=== PATIENT | female | born 1970 | race African-American/Black ===

== ENCOUNTER 2019-04-22 23:29 | Inpatient (IN) | payer MEDICAID, OTHER ==
[~2019-04-22] VITALS: Ht 162.6 cm; Wt 61.8 kg
[~2019-04-22 23:29] MED LIST: ALBU2.5V36 NEB; ALBU8.5H8 INH; DOXY100C PO; FLUO20CA38 PO; HYDR25TA6 PO; PRED20TA PO
--- NOTE | 2019-04-22 23:39 | ERD ---
ER Documentation Chief Complaint Chief Complaint BIBRA,wheezing,SOB,hx asthma,rec'd albuterol tx on route,hx CVA HPI The patient is a 48-year-old female, presenting to the ER because of worsening dyspnea today, has similar symptoms previously, treated with albuterol 5 mg nebulizer by EMS with minimal response. She is awake, alert, but only answer yes or no question. He denies fever, chills, neck pain, chest pain, abdominal pain, vomiting, dysuria, diarrhea. She smokes, denies drinking or using illicit drug Past medical history: Asthma, history of CVA, depression, hypertension Past surgical history: None ROS All systems reviewed and are negative except as per history of present illness. Medications Home Meds Active Scripts Albuterol Sulfate* (Proair HFA*) 8.5 Gm Hfa.aer.ad, 2 PUFF INH Q4, #1 INHALER Prov:KHANG RICH NP 01/08/16 Prednisone* (Prednisone*) 20 Mg Tab, 20 MG PO DAILY for 4 Days, TAB Prov:KHANG RICH NP 01/08/16 Hydrochlorothiazide* (Hydrochlorothiazide*) 25 Mg Tab, 25 MG PO DAILY, #30 TAB Prov:LACY EDWARDS MD 12/27/15 Doxycycline* (Vibramycin*) 100 Mg Capsule, 100 MG PO BID for 7 Days, EA Prov:LACY EDWARDS MD 12/27/15 Albuterol Sulfate* (Proair HFA*) 8.5 Gm Hfa.aer.ad, 2 PUFF INH Q4, #1 INHALER Prov:LACY EDWARDS MD 12/27/15 Prednisone* (Prednisone*) 20 Mg Tab, 60 MG PO DAILY for 5 Days, TAB Prov:LACY EDWARDS MD 12/27/15 Reported Medications Albuterol Sulfate* (Albuterol Sulfate* Neb) 0.5%-0.5 Ml Neb, 1.25 MG NEB Q3H PRN for WHEEZING AND SOB, EA 03/14/15 Fluoxetine Hcl* (Prozac*) 20 Mg Capsule, 20 MG PO DAILY, CAP 03/09/15 Allergies Allergies: Coded Allergies: erythromycin base (Verified Allergy, Severe, 12/27/15) Bacitracin Zinc (Verified Allergy, Unknown, 03/14/15) bacitracin (Verified Allergy, Unknown, 03/14/15) benzalkonium chloride (Verified Allergy, Unknown, 03/14/15) gramicidin D (Verified Allergy, Unknown, 03/14/15) neomycin sulfate (Verified Allergy, Unknown, 03/14/15) polymyxin B (Verified Allergy, Unknown, 03/14/15) polymyxin B sulfate (Verified Allergy, Unknown, 03/14/15) PMhx/Soc History of Surgery: No Anesthesia Reaction: No Hx Neurological Disorder: No Hx Respiratory Disorders: Yes (Asthma) Hx Cardiac Disorders: Yes (HTN) Hx Psychiatric Problems: Yes (DEPRESSION) Hx Miscellaneous Medical Probl: No Hx Alcohol Use: Yes (SOCIALLY) Hx Substance Use: No Hx Tobacco Use: No Physical Exam Vitals Vital Signs Date Temp Pulse Resp B/P (MAP) Pulse Ox O2 O2 Flow FiO2 Time Delivery Rate 04/23/19 86 15 141/104 95 Room Air 01:29 (116) 04/23/19 Simple 10 00:18 Mask 04/23/19 Simple 10.0 00:18 Mask 04/22/19 82 20 100 Simple 10.0 23:57 Mask 04/22/19 100 10.0 23:57 04/22/19 97.7 88 20 117/86 95 23:36 (96) Physical Exam Const: Mild acute distress. Head: Atraumatic. Eyes: Normal Conjunctiva. ENT: Normal External Ears, Nose and Mouth. Neck: Full range of motion. No meningismus. Resp: Tachypneic, bilateral expiratory wheezes Cardio: Regular rate and rhythm. Abd: Soft, non distended, normal bowel sounds, non tender. Skin: No petechiae or rashes. Back: No midline or flank tenderness. Ext: No cyanosis, or edema. Neur: Awake and alert. No focal deficit Psych: Normal Mood and Affect. Result Diagram: 04/22/19 2356 04/22/192352 Results 24 hrs Laboratory Tests Test 04/22/19 23:53 White Blood Count 7.2 10^3/ul Red Blood Count 4.29 10^6/ul Hemoglobin 13.0 g/dl Hematocrit 38.4 % Mean Corpuscular Volume 89.5 fl Mean Corpuscular Hemoglobin 30.3 pg Mean Corpuscular Hemoglobin Concent 33.9 g/dl Red Cell Distribution Width 13.4 % Platelet Count 292 10^3/UL Mean Platelet Volume 9.6 fl Immature Granulocytes % 0.300 % Neutrophils % 50.2 % Lymphocytes % 36.8 % Monocytes % 7.1 % Eosinophils % 5.0 % Basophils % 0.6 % Nucleated Red Blood Cells % 0.0 /100WBC Immature Granulocytes # 0.020 10^3/ul Neutrophils # 3.6 10^3/ul Lymphocytes # 2.6 10^3/ul Monocytes # 0.5 10^3/ul Eosinophils # 0.4 10^3/ul Basophils # 0.0 10^3/ul Nucleated Red Blood Cells # 0.0 10^3/ul Sodium Level 144 mmol/L Potassium Level 3.2 mmol/L Chloride Level 107 mmol/L Carbon Dioxide Level 27 mmol/L Anion Gap 10 Blood Urea Nitrogen 11 mg/dl Creatinine 0.57 mg/dl Est Glomerular Filtrat Rate mL/min > 60 mL/min Glucose Level 94 mg/dl Calcium Level 9.7 mg/dl Current Medications Medications Dose Sig/Francesca Start Time Status Last (Trade) Ordered Route PRN Stop Time Admin Dose Reason Admin Sodium 1,000 ml @ Q1H STAT 04/22/19 DC 04/22/19 Chloride 1,000 mls/hr IV 23:43 23:50 04/23/19 00:42 5 mg ONCE STAT 04/22/19 DC 04/22/19 Levalbuterol INH 23:43 04/22/19 23:56 (Xopenex 23:45 Neb) Ipratropium 2 mg ONCE STAT 04/22/19 DC 04/22/19 [place] INH 23:43 04/22/19 23:56 (Atrovent 23:45 0.02% (Neb)) 125 mg ONCE STAT 04/22/19 DC 04/22/19 Methylprednis IV 23:43 04/22/19 23:50 olone Sodium 23:45 Succinate (Solu-Medrol) Magnesium 50 ml @ 25 ONCE STAT 04/22/19 DC 04/22/19 Sulfate mls/hr IVPB 23:43 23:50 04/23/19 01:42 Procedures/MDM [address] [address] Radiology Main Line: [phone] DIAGNOSTIC IMAGING REPORT Patient: DIVINE MENJIVAR : 1970 Age: 48 Sex: F MR #: [id number] DOS: 04/22/19 2343 Ordering MD: JAIRO AMADOR MD Location: E/R Room/Bed: PROCEDURE: Chest. CLINICAL INDICATION: Asthma exacerbation. TECHNIQUE: Single frontal view of the chest was obtained. COMPARISON: 01/08/2016. FINDINGS: The cardiac silhouette is within normal limits. The aortic arch is unremarkable. There is no focal consolidation, vascular congestion or pleural effusion. There is no pneumothorax. IMPRESSION: No evidence for active cardiopulmonary disease. .Isai Garza MD, Date Time Electronically viewed and signed by .Isai Garza MD, on 04/23/2019 01:11 .T/ CC: JAIRO AMADOR MD [phone] MEDICAL MAKING DECISION: The patient is a 48-year-old female, presenting with acute asthmatic exacerbation, acute hypokalemia. She treated with 1L NS, Xopenex 5 mg and Atrovent 2 mg continuous nebulizer over 1 hour, Solu-Medrol 125 mg IV and magnesium 2 g IV for acute asthma, potassium chloride 60 mEq p.o. for acute hypokalemia with good response. Multiple reevaluation, she felt better however she remained tachypneic The differential diagnoses considered include but are not limited to asthma, COPD, pneumonia, pulmonary embolus, pleural effusion, congestive heart failure. Departure Diagnosis: Primary Impression: Asthma exacerbation Additional Impression: Hypokalemia Condition: Stable Comments I discussed the findings with the patient. I notified the patient with Dr. Alcala via [facility] at 2:15am, who was made aware of the lab, the treatment, the patient condition. The patient is admitted to [facility] Disclaimer: Inadvertent spelling and grammatical errors are likely due to EHR/dictation software use and do not reflect on the overall quality of patient care. Also, please note that the electronic time recorded on this note does not necessarily reflect the actual time of the patient encounter. JAIRO AMADOR MD Apr 22, 2019 23:39
[2019-04-22] MEDS ORDERED: IPRATROPIUM (NEB) 0.5 MG/2.5 ML AMP INH STA (23:43)
[2019-04-22] MEDS ORDERED: MAGNESIUM SULFATE 2 GM/50 ML 50 ML IVPB STA (23:43)
[2019-04-22] MEDS ORDERED: SOD CHLORIDE 0.9% 1,000 ML IV STA (23:43)
[2019-04-22] MEDS ORDERED: LEVALBUTEROL (NEB) 1.25 MG/0.5 ML AMP INH STA (23:43)
[2019-04-22] MEDS ORDERED: METHYLPREDNISOLONE 125 MG INJ IV STA (23:43)
[2019-04-23] MEDS ORDERED: POTASSIUM CHLORIDE (SR) 20 MEQ TAB PO STA (02:17)
--- NOTE | 2019-04-23 02:22 | HP ---
Date/Time of Note Date/Time of Note DATE: 04/23/19 TIME: 02:21 Assessment/Plan VTE Prophylaxis SCD applied (from Ns): Yes Pharmacological prophylaxis: NA/contraindicated Pharm contraindication: low risk/ambulating Assessment/Plan Hospital Course This is a 48-year-old female being admitted to the [facility] floor for: #1 acute asthma exacerbation: Patient has responded well to steroids and nebulizers. We will continue serial nebs, prednisone burst/Pepcid. Chest x-ray does not show any acute infiltrates. Hold labetalol. #2 history of CVA: Patient does have residual right-sided weakness. She he ambulates with a walker. We will continue patient's home medications #3 hypertension: Continue hydrochlorothiazide, amlodipine, lisinopril with parameters, will resume labetalol once her exacerbation is resolved. #4 Tobacco use: Nicotine patch, encourage cessation #5 DVT GI prophylaxis: SCDs, Pepcid Further treatment strategy will be implemented as per the clinical course Result Diagram: 04/22/19 2353 04/22/19 2353 Results 24hrs Laboratory Tests Test 04/22/19 23:53 White Blood Count 7.2 Red Blood Count 4.29 Hemoglobin 13.0 Hematocrit 38.4 Mean Corpuscular Volume 89.5 Mean Corpuscular Hemoglobin 30.3 Mean Corpuscular Hemoglobin Concent 33.9 Red Cell Distribution Width 13.4 Platelet Count 292 Mean Platelet Volume 9.6 Immature Granulocytes % 0.300 Neutrophils % 50.2 Lymphocytes % 36.8 Monocytes % 7.1 Eosinophils % 5.0 Basophils % 0.6 Nucleated Red Blood Cells % 0.0 Immature Granulocytes # 0.020 Neutrophils # 3.6 Lymphocytes # 2.6 Monocytes # 0.5 Eosinophils # 0.4 Basophils # 0.0 Nucleated Red Blood Cells # 0.0 Sodium Level 144 Potassium Level 3.2 L Chloride Level 107 Carbon Dioxide Level 27 Anion Gap 10 Blood Urea Nitrogen 11 Creatinine 0.57 Est Glomerular Filtrat Rate mL/min > 60 Glucose Level 94 Calcium Level 9.7 HPI/ROS Admit Date/Time Admit Date/Time Hx of Present Illness Chief complaint: Shortness of breath, wheezing x1 day This is a 48-year-old female with a past medical history of CVA and asthma who presented to the emergency department for symptoms of shortness of breath and wheezing. Patient reported that she felt short of breath during the day and use her inhaler but did not have any relief from it. She then used her nebulizer which also did not help her. She ended up calling an ambulance and did receive a breathing treatment in route which helped her minimally. In the emergency department patient was given a breathing treatment as well as steroids. She did respond well however she did have increased oxygen requirement. Patient is currently doing well. She was able to be weaned off of simple mask. She denies any chest pain nausea vomiting. She does have a history of CVA with right upper and lower extremity weakness. She is able to ambulate with a walker. Allergies: Bacitracin, benzalkonium chloride, erythromycin, Grammy Seiden D, neomycin, polymyxin B Medications: Albuterol nebulizer as needed Hydrochlorothiazide 25 mg p.o. daily Labetalol 300 mg p.o. 3 times daily Gabapentin 400 mg p.o. twice daily Lisinopril 5 mg p.o. daily Amlodipine 10 mg p.o. daily Nicotine patch 7 mg patch daily ROS Const: As per HPI Eyes : No pain discharge or redness or change in visual acuity ENT: No pain, sore throat, congestion, congestion, dysphagia or discharge Respiratory: As per HPI Cardiovascular: No chest pain, palpitation, PND, or edema GI : no change in appetite, abdominal pain, nausea, vomiting, diarrhea, constipation, or change in the color his stool Genitourinary: No dysuria, hematuria, flank pain , discharge or CVA tenderness Musculoskeletal: No joint pain, back pain, neck pain, restricted range of motion in neck or joints Skin: No rash, bruising or hives Neuro: No headache, dizziness, syncope, seizure, focal weakness Endocrine: No polyuria, polydipsia, temperature intolerance Psych: No hallucination, depression, anxiety or suicidal ideation PMH/Family/Social Past Medical History Asthma, history of CVA with right-sided weakness, depression, hypertension Coded Allergies: erythromycin base (Verified Allergy, Severe, 12/27/15) Bacitracin Zinc (Verified Allergy, Unknown, 03/14/15) bacitracin (Verified Allergy, Unknown, 03/14/15) benzalkonium chloride (Verified Allergy, Unknown, 03/14/15) gramicidin D (Verified Allergy, Unknown, 03/14/15) neomycin sulfate (Verified Allergy, Unknown, 03/14/15) polymyxin B (Verified Allergy, Unknown, 03/14/15) polymyxin B sulfate (Verified Allergy, Unknown, 03/14/15) Past Surgical History Past Surgical Hx: no surgical history Family History Significant Family History: no pertinent family hx Social History Alcohol Use: occasionally Smoking Status: Current every day smoker Drug Use: none Exam/Review of Systems Vital Signs Vitals Vital Signs Date Temp Pulse Resp B/P (MAP) Pulse Ox O2 O2 Flow FiO2 Time Delivery Rate 04/23/19 86 15 141/104 95 Room Air 01:29 (116) 04/23/19 10 00:18 04/22/19 97.7 23:36 Exam Exam General: Patient is a pleasant female currently sitting upright in bed undergoing a breathing treatment, she does not appear to be in any respiratory distress HEENT: Atraumatic, normocephalic. The pupils are equal, round and reactive. Extraocular motor are intact Neck: Supple with full range of motion. No rigidity or meningismus Chest: Nontender Lungs: End expiratory wheezing bilaterally, nonlabored breathing Heart: Normal S1-S2, Regular rhythm and rate. No murmur, S3, or S4 Abdomen: Soft , nontender, nondistended , bowel sounds are present. No guarding no rebound tenderness , No masses or organomegaly. No costovertebral temporal angle mass Extremities: Normal to inspection, no edema no cyanosis Neurologic: Normal mental status, speech normal, cranial nerves II through XII are intact, mild right upper and lower extremity weakness compared to the left (chronic) Additional Comments PROCEDURE: Chest. CLINICAL INDICATION: Asthma exacerbation. TECHNIQUE: Single frontal view of the chest was obtained. COMPARISON: 01/08/2016. FINDINGS: The cardiac silhouette is within normal limits. The aortic arch is unremarkable. There is no focal consolidation, vascular congestion or pleural effusion. There is no pneumothorax. IMPRESSION: No evidence for active cardiopulmonary disease. .Isai Garza MD, Date Time Electronically viewed and signed by .Isai Garza MD, MD on 04/23/2019 01:11 .T/ CC: JAIRO AMADOR MD [phone] ZHOU BOSE Apr 23, 2019 02:22
[2019-04-23] MEDS: ALBUTEROL 0.083% (NEB) 2.5 MG/3 ML AMP HHN SCH ×4 (02:30→13:43)
[2019-04-23] MEDS ORDERED: ACETAMINOPHEN 325 MG TAB PO PRN (02:30)
[2019-04-23] MEDS ORDERED: ONDANSETRON 4 MG INJ IV PRN (02:30)
[2019-04-23] MEDS ORDERED: BISACODYL (EC) 5 MG TAB PO PRN (02:30)
[2019-04-23] MEDS ORDERED: DOCUSATE SODIUM 100 MG CAP PO PRN (02:30)
[2019-04-23] MEDS ORDERED: NACL 0.9% 3 ML SYG IV SCH (02:30)
[2019-04-23] MEDS ORDERED: ALBUTEROL 0.083% (NEB) 2.5 MG/3 ML AMP HHN PRN (02:30)
[2019-04-23] MEDS: IPRATROPIUM (NEB) 0.5 MG/2.5 ML AMP HHN SCH ×4 (02:30→13:43)
[2019-04-23 03:15] VITALS: BP 154/87; PULSE 81; RESP 17
[2019-04-23 04:29] VITALS: Ht 162.6 cm; Wt 61.8 kg
[2019-04-23] MEDS ORDERED: LABE200T7 PO (04:57)
[2019-04-23] MEDS ORDERED: NICO-544 TD ×2 (04:57→11:57)
[2019-04-23] MEDS ORDERED: LISI-313 PO (04:57)
[2019-04-23] MEDS ORDERED: HYDR12.58 PO (04:57)
[2019-04-23] MEDS ORDERED: GABA400C14 PO (04:57)
[2019-04-23] MEDS ORDERED: AMLO-147 PO (04:57)
[2019-04-23] MEDS: FAMOTIDINE 20 MG TAB PO SCH ×2 (05:06→08:52)
[2019-04-23] MEDS ORDERED: METHYLPREDNISOLONE 40 MG INJ IV SCH (06:00)
[2019-04-23 08:00] VITALS: BP 144/89; PULSE 85; RESP 16
[2019-04-23] MEDS ORDERED: HYDROCHLOROTHIAZIDE 25 MG TAB PO SCH (09:00)
[2019-04-23] MEDS ORDERED: NICOTINE (7 MG/24 HR) PATCH TRANSDERM SCH (09:00)
[2019-04-23] MEDS ORDERED: LISINOPRIL 5 MG TAB PO SCH (09:00)
[2019-04-23] MEDS ORDERED: predniSONE 20 MG TAB PO SCH (09:00)
[2019-04-23] MEDS ORDERED: AMLODIPINE 10 MG TAB PO SCH (09:00)
[2019-04-23] MEDS ORDERED: ENOXAPARIN 40 MG/0.4 ML SYG SC SCH (09:00)
[2019-04-23] MEDS ORDERED: GABAPENTIN 400 MG CAP PO SCH (09:00)
[2019-04-23] MEDS ORDERED: PRED20TA PO (11:57)
[2019-04-23] MEDS ORDERED: ALBU2.5V3 NEB (11:57)
[2019-04-23] MEDS ORDERED: ALBU8.5H8 INH (11:57)
--- NOTE | 2019-04-23 11:59 | PDOCDIS ---
Discharge Instructions DIAGNOSIS Discharge Diagnosis Asthma exacerbation CONDITION [id number] Patient Condition: [id number] Good HOME CARE INSTRUCTIONS: [id number] Diet Instructions: [id number] Regular ACTIVITY: [id number] Activity Restrictions: [id number] No Restrictions [id number] Bathing Restrictions: [id number] Shower FOLLOW UP/APPOINTMENTS Follow-up Plan 1. Completely quit smoking. This includes social smoking. In addition to the nicotine patch you can ask your primary care doctor about varenicline or buproprion, which are pills that decrease the craving for a cigarette. 2. Finish 5 more days of prednisone 40mg daily as prescribed. 3. Take all other medication as prescribed. 4. See your primary care doctor in 1-2 weeks. WOOD HWANG MD Apr 23, 2019 11:59
--- NOTE | 2019-04-23 16:34 | DS ---
Date/Time of Note Date/Time of Note DATE: 04/23/19 TIME: 16:33 Discharge Summary Admission/Discharge Info Admit Date/Time Apr 23, 2019 at 02:50 Discharge Date/Time Apr 23, 2019 at 13:50 Discharge Diagnosis Asthma exacerbation Patient Condition: Good Hx of Present Illness Chief complaint: Shortness of breath, wheezing x1 day This is a 48-year-old female with a past medical history of CVA and asthma who presented to the emergency department for symptoms of shortness of breath and wheezing. Patient reported that she felt short of breath during the day and use her inhaler but did not have any relief from it. She then used her nebulizer which also did not help her. She ended up calling an ambulance and did receive a breathing treatment in route which helped her minimally. In the emergency department patient was given a breathing treatment as well as steroids. She did respond well however she did have increased oxygen requirement. Patient is currently doing well. She was able to be weaned off of simple mask. She denies any chest pain nausea vomiting. She does have a history of CVA with right upper and lower extremity weakness. She is able to ambulate with a walker. Allergies: Bacitracin, benzalkonium chloride, erythromycin, Grammy Seiden D, neomycin, polymyxin B Medications: Albuterol nebulizer as needed Hydrochlorothiazide 25 mg p.o. daily Labetalol 300 mg p.o. 3 times daily Gabapentin 400 mg p.o. twice daily Lisinopril 5 mg p.o. daily Amlodipine 10 mg p.o. daily Nicotine patch 7 mg patch daily Hospital Course When I saw the patient in the morning she was breathing comfortably on room air with no wheezing. She does reports that she "smokes socially", and I encouraged cessation. Plan to discharge to complete 5 days of prednisone 40mg daily. I also refilled albuterol. Home Meds Active Scripts Prednisone* (Prednisone*) 20 Mg Tab, 40 MG PO DAILY for 5 Days, #10 TAB Prov:WOOD HWANG MD 04/23/19 Albuterol Sulfate* (Albuterol Sulfate* Neb) 0.083%-3 Ml Neb, 2.5 MG NEB Q3H PRN for WHEEZING AND SOB, #30 VIAL Prov:WOOD HWANG MD 04/23/19 Nicotine* (Nicotine* Patch) 7 mg/day Patch, 1 PATCH TD DAILY, #30 PATCH Prov:WOOD HWANG MD 04/23/19 Albuterol Sulfate* (Proair HFA*) 8.5 Gm Hfa.aer.ad, 2 PUFF INH Q4, #1 INHALER 1 Refill Prov:WOOD HWANG MD 04/23/19 Hydrochlorothiazide* (Hydrochlorothiazide*) 25 Mg Tab, 25 MG PO DAILY, #30 TAB Prov:LACY EDWARDS MD 12/27/15 Reported Medications Hydrochlorothiazide* (Hydrochlorothiazide*) 12.5 Mg Tablet, 12.5 MG PO DAILY, #30 TAB 04/23/19 Lisinopril* (Lisinopril*) 5 Mg Tablet, 5 MG PO DAILY, #30 TAB 04/23/19 Amlodipine Besylate* (Amlodipine Besylate*) 10 Mg Tablet, 10 MG PO DAILY, #30 TAB 04/23/19 Gabapentin* (Gabapentin*) 400 Mg Capsule, 400 MG PO BID, #90 CAP 04/23/19 Labetalol Hcl (Normodyne) 200 Mg Tablet, 300 MG PO TID, TAB 04/23/19 Discontinued Reported Medications Albuterol Sulfate* (Albuterol Sulfate* Neb) 0.5%-0.5 Ml Neb, 1.25 MG NEB Q3H PRN for WHEEZING AND SOB, EA 03/14/15 Fluoxetine Hcl* (Prozac*) 20 Mg Capsule, 20 MG PO DAILY, CAP 03/09/15 Discontinued Scripts Albuterol Sulfate* (Proair HFA*) 8.5 Gm Hfa.aer.ad, 2 PUFF INH Q4, #1 INHALER Prov:KHANG RICH NP 01/08/16 Prednisone* (Prednisone*) 20 Mg Tab, 20 MG PO DAILY for 4 Days, TAB Prov:KHANG RICH NP 01/08/16 Doxycycline* (Vibramycin*) 100 Mg Capsule, 100 MG PO BID for 7 Days, EA Prov:LACY EDWARDS MD 12/27/15 Prednisone* (Prednisone*) 20 Mg Tab, 60 MG PO DAILY for 5 Days, TAB Prov:LACY EDWARDS MD 12/27/15 Follow-up Plan 1. Completely quit smoking. This includes social smoking. In addition to the nicotine patch you can ask your primary care doctor about varenicline or buproprion, which are pills that decrease the craving for a cigarette. 2. Finish 5 more days of prednisone 40mg daily as prescribed. 3. Take all other medication as prescribed. 4. See your primary care doctor in 1-2 weeks. Primary Care Provider Care Physician No Primary Time spent on discharge: > 30 minutes Pending Labs Laboratory Tests Test 04/22/19 23:53 04/23/19 04:58 White Blood Count 7.2 10^3/ul (4.8-10.8) 4.8 10^3/ul (4.8-10.8) Red Blood Count 4.29 10^6/ul (4.20-5.40) 4.12 10^6/ul (4.20-5.40) Hemoglobin 13.0 g/dl (12.0-16.0) 12.5 g/dl (12.0-16.0) Hematocrit 38.4 % (37.0-47.0) 36.4 % (37.0-47.0) Mean Corpuscular Volume 89.5 fl (82.0-101.0) 88.3 fl (82.0-101.0) Mean Corpuscular 30.3 pg (29.0-33.0) 30.3 pg (29.0-33.0) Hemoglobin Mean Corpuscular 33.9 g/dl (32.0-37.0) 34.3 g/dl (32.0-37.0) Hemoglobin Concent Red Cell Distribution 13.4 % (11.5-14.5) 13.2 % (11.5-14.5) Width Platelet Count 292 10^3/UL (140-415) 300 10^3/UL (140-415) Mean Platelet Volume 9.6 fl (7.4-10.4) 9.9 fl (7.4-10.4) Immature Granulocytes % 0.300 % (0.001-0.429) 0.200 % (0.001-0.429) Neutrophils % 50.2 % (39.0-77.0) 80.0 % (39.0-77.0) Lymphocytes % 36.8 % (15.0-51.0) 17.3 % (15.0-51.0) Monocytes % 7.1 % (0.0-11.0) 1.9 % (0.0-11.0) Eosinophils % 5.0 % (0.0-7.0) 0.2 % (0.0-7.0) Basophils % 0.6 % (0.0-2.0) 0.4 % (0.0-2.0) Nucleated Red Blood Cells 0.0 /100WBC (0.0-0.0) 0.0 /100WBC (0.0-0.0) % Immature Granulocytes # 0.020 10^3/ul (0.0-0.031) 0.010 10^3/ul (0.0-0.031) Neutrophils # 3.6 10^3/ul (1.6-7.5) 3.8 10^3/ul (1.6-7.5) Lymphocytes # 2.6 10^3/ul (0.8-2.9) 0.8 10^3/ul (0.8-2.9) Monocytes # 0.5 10^3/ul (0.3-0.9) 0.1 10^3/ul (0.3-0.9) Eosinophils # 0.4 10^3/ul (0.0-0.5) 0.0 10^3/ul (0.0-0.5) Basophils # 0.0 10^3/ul (0.0-0.1) 0.0 10^3/ul (0.0-0.1) Nucleated Red Blood Cells 0.0 10^3/ul (0.0-0.0) 0.0 10^3/ul (0.0-0.0) # Sodium Level 144 mmol/L (135-144) 142 mmol/L (135-144) Potassium Level 3.2 mmol/L (3.5-5.1) 4.0 mmol/L (3.5-5.1) Chloride Level 107 mmol/L (97-110) 107 mmol/L (97-110) Carbon Dioxide Level 27 mmol/L (21-31) 25 mmol/L (21-31) Anion Gap 10 (5-13) 10 (5-13) Blood Urea Nitrogen 11 mg/dl (7-20) 11 mg/dl (7-20) Creatinine 0.57 mg/dl (0.44-1.00) 0.51 mg/dl (0.44-1.00) Est Glomerular Filtrat > 60 mL/min (>60) > 60 mL/min (>60) Rate mL/min Glucose Level 94 mg/dl (70-220) 116 mg/dl (70-220) Calcium Level 9.7 mg/dl (8.4-10.2) 9.6 mg/dl (8.4-10.2) Hemoglobin A1c 4.8 % (0-5.9) Magnesium Level 2.1 mg/dl (1.7-2.5) Total Bilirubin 0.5 mg/dl (0.2-1.3) Direct Bilirubin 0.00 mg/dl (0.00-0.20) Indirect Bilirubin 0.5 mg/dl (0-1.1) Aspartate Amino 21 IU/L (15-46) Transf (AST/SGOT) Alanine 18 IU/L (13-69) Aminotransferase (ALT/SGPT ) Alkaline Phosphatase 49 IU/L (42-121) Total Protein 8.0 g/dl (6.1-8.1) Albumin 4.6 g/dl (3.3-4.9) Globulin 3.40 g/dl (1.3-3.2) Albumin/Globulin Ratio 1.35 Triglycerides Level 161 mg/dl (0-149) Cholesterol Level 164 mg/dl (100-200) LDL Cholesterol, 72 mg/dl Calculated HDL Cholesterol 60 mg/dl (34-88) Cholesterol/HDL Ratio 2.7 RATIO Thyroid Stimulating 0.788 MIU/L (0.465-4.680) Hormone (TSH) WOOD HWANG MD Apr 23, 2019 16:34
== END 2019-04-23 13:50 | disposition home or self-care (01) | DRG 202 ==
LOC: E/R 23:29 → 5EC 04-23 02:50 → EDBEDREQSVC 04-23 02:51 → EDBEDREQTM 04-23 02:51
PROVIDERS: ADMIT Family Medicine; ATTEND Internal Medicine
DX: J45.901 Unspecified asthma with (acute) exacerbation (principal); I69.951 Hemiplegia and hemiparesis following unspecified cerebrovascular disease affecting right dominant side; Z72.0 Tobacco use; I10 Essential (primary) hypertension
CPT/HCPCS: 71045; 80048; 80053; 80061; 82306; 83036; 83735; 84443; 85025; 94640; 94644; 94664; 96374; 96375; J1650; J2930; J3475; J7030; J7512